=== PATIENT | male | born 1955 | race Two or more races ===

== ENCOUNTER 2023-12-08 13:48 | Emergency (ER) | payer OTHER ==
[~2023-12-08] VITALS: Ht 175.3 cm; Wt 83.9 kg
[2023-12-08] MEDS ORDERED: ATORVASTATIN CA20 MG (13:53)
[2023-12-08] MEDS ORDERED: METFORMIN HCL850 MG (13:53)
[2023-12-08] MEDS ORDERED: KETOROLAC TROMETHAMINE 30 MG VIAL IM STA (14:37)
[2023-12-08] MEDS ORDERED: KETOROLAC TROMETHAMINE 30 MG VIAL ONE (14:58)
== END 2023-12-08 16:50 | disposition home or self-care (01) ==
LOC: ER 13:49
DX: S89.81XA Other specified injuries of right lower leg, initial encounter (principal); X58.XXXA Exposure to other specified factors, initial encounter; Y93.89 Activity, other specified; Y92.89 Other specified places as the place of occurrence of the external cause; Y99.8 Other external cause status